=== PATIENT | male | born 1975 | race African-American/Black ===

== ENCOUNTER 2017-04-16 07:10 | Day surgery (SDC) | payer OTHER ==
[2017-04-11 12:00] VITALS: BMI 38.5
[2017-04-16] MEDS ORDERED: MIDAZOLAM HCL 2 MG/2 ML SINGLE DOSE VIAL ONE (07:55)
[2017-04-16] MEDS ORDERED: ACETAMINOPHEN 325 MG TABLET (FP) PO PRN (08:43)
[2017-04-16] MEDS ORDERED: ONDANSETRON 4 MG/2 ML VIAL IVPUSH PRN (08:43)
[2017-04-16] MEDS ORDERED: oxyCODONE HCL 5 MG TABLET PO PRN (08:43)
[2017-04-16] MEDS ORDERED: LACTATED RINGERS SOLUTION 1,000 ML IV SCH (08:45)
[2017-04-16 09:02] VITALS: TEMP 97.9
[2017-04-16 09:19] VITALS: BP 113/64; PULSE 84
--- NOTE | 2017-04-18 09:10 | OP ---
DATE OF OPERATION: 04/16/2017 PREOPERATIVE DIAGNOSIS: Left carpal tunnel syndrome. POSTOPERATIVE DIAGNOSIS: Left carpal tunnel syndrome. OPERATIVE PROCEDURE: Left carpal tunnel release. ANESTHESIA: Local with sedation. COMPLICATIONS: None. ESTIMATED BLOOD LOSS: Minimal. INDICATIONS FOR PROCEDURE: The patient is a 42-year-old with the above finding, indicated for operative treatment. Risks, benefits, and alternatives were discussed with the patient at length. Proper informed consent was obtained. PROCEDURE: After proper identification of the patient and correct operative site, the patient was brought to the operating room and placed supine on the operating room table. All prominences were well padded. Sedation was given by the anesthesiologist. Local anesthesia was given with 2% lidocaine. Left upper extremity was prepped and draped in the usual sterile fashion. A well-padded tourniquet was placed with a sterile prep. Esmarch bandage used to exsanguinate the left upper extremity. Tourniquet was inflated to 250 mmHg. A longitudinal incision was made over the proximal aspect of the palm. Incision was taken sharply through skin with blunt and sharp dissection through the subcutaneous tissues. Palmar fascia was divided longitudinally and the transverse carpal ligament was divided longitudinally along with the distal 4 cm of antebrachial fascia under direct visualization with loupe magnification. This provided complete release . The wound was irrigated with saline and repaired with a 5-0 nylon suture. Sterile dressings were applied. The patient was reversed from sedation and brought to the recovery room in stable condition. He tolerated the procedure well. Blessing [id number]
== END 2017-04-16 09:25 | disposition home or self-care (01) ==
LOC: FASU 07:10
PROVIDERS: ATTEND Orthopaedic Surgery Hand Surgery
PROC: 01N50ZZ Release Median Nerve, Open Approach (ICD-10-PCS; principal; 2017-04-16 08:25)
DX: G56.02 Carpal tunnel syndrome, left upper limb (principal)

== ENCOUNTER 2021-08-01 08:41 | Day surgery (SDC) | payer OTHER ==
[2021-07-26 12:18] VITALS: BMI 38.5
[2021-08-01] MEDS ORDERED: LIDOCAINE HCL 2% (20ML MULTI-DOSE VIAL) ONE (10:31)
[2021-08-01] MEDS ORDERED: MIDAZOLAM HCL 2 MG/2 ML SINGLE DOSE VIAL ONE ×2 (10:46)
[2021-08-01] MEDS ORDERED: PROPOFOL 20 ML ONE ×2 (10:53→11:02)
[2021-08-01 11:46] VITALS: PULSE 64; TEMP 97.7
[2021-08-01 12:16] VITALS: BP 118/78
== END 2021-08-01 12:15 | disposition home or self-care (01) ==
LOC: FASU 08:41
PROVIDERS: ATTEND Orthopaedic Surgery Hand Surgery
PROC: 01N50ZZ Release Median Nerve, Open Approach (ICD-10-PCS; principal; 2021-08-01 11:01)
DX: G56.01 Carpal tunnel syndrome, right upper limb (principal)

== ENCOUNTER 2023-05-13 20:18 | Emergency (ER) | payer OTHER ==
[2023-05-13 20:31] VITALS: BP 124/69; PULSE 74; RESP 16; TEMP 98.5; BMI 35.9
[2023-05-13] MEDS ORDERED: DIPHTH,PERTUSS(ACELL),TET 0.5 ML DISP.SYRIN IM ONE ×2 (22:53→22:57)
[2023-05-13] MEDS ORDERED: AMOX TR/POT CLAV 875MG/125MG TABLETS (FP) PO ONE (22:53)
[2023-05-13] MEDS ORDERED: AMOX TR/POT CLAV 875MG/125MG TABLETS (FP) ONE (22:57)
== END 2023-05-13 23:24 | disposition home or self-care (01) ==
LOC: FER 20:18
PROC: 3E0234Z Introduction of Serum, Toxoid and Vaccine into Muscle, Percutaneous Approach (ICD-10-PCS; principal; 2023-05-13)
DX: S90.851A Superficial foreign body, right foot, initial encounter (principal); W46.0XXA Contact with hypodermic needle, initial encounter; Y93.01 Activity, walking, marching and hiking; Y92.9 Unspecified place or not applicable
CPT/HCPCS: 73630-TC-RT-FY; 90715; 99283-25

== ENCOUNTER 2023-05-22 11:40 | Day surgery (SDC) | payer OTHER ==
[2023-05-20 11:55] VITALS: BMI 36.6
[2023-05-22 12:20] VITALS: RESP 20
[2023-05-22] MEDS ORDERED: PROPOFOL 20 ML ONE ×3 (12:22→13:39)
[2023-05-22] MEDS ORDERED: MIDAZOLAM HCL 2 MG/2 ML SINGLE DOSE VIAL ONE (12:22)
[2023-05-22] MEDS ORDERED: BUPIVACAINE HCL/PF 0.5% (5MG/ML) 10 ML VIAL ONE (12:26)
[2023-05-22] MEDS ORDERED: BUPIVACAINE HCL/PF 0.25% (2.5MG/ML) 10 ML VIAL ONE (12:26)
[2023-05-22] MEDS ORDERED: LIDOCAINE 1% P/F 10 MG/ML VIAL ONE (12:26)
[2023-05-22] MEDS ORDERED: ONDANSETRON 4 MG/2 ML VIAL IVPUSH PRN (12:27)
[2023-05-22] MEDS ORDERED: LIDOCAINE HCL 1%, 10 MG/ML (20ML VIAL) ONE (12:27)
[2023-05-22] MEDS ORDERED: oxyCODONE HCL 5 MG TABLET PO PRN ×2 (12:27)
[2023-05-22] MEDS ORDERED: LACTATED RINGERS SOLUTION 1,000 ML IV SCH (12:30)
[2023-05-22] MEDS ORDERED: LIDOCAINE HCL 2% (20ML MULTI-DOSE VIAL) ONE (12:36)
[2023-05-22] MEDS ORDERED: oxyCODONE HCL 5 MG TABLET ONE (14:21)
[2023-05-22 14:51] VITALS: TEMP 97.4
[2023-05-22 15:04] VITALS: BP 128/73; PULSE 68
== END 2023-05-22 15:00 | disposition home or self-care (01) ==
LOC: FASU 11:40
PROVIDERS: ATTEND Podiatrist Foot & Ankle Surgery
PROC: 0KCV0ZZ Extirpation of Matter from Right Foot Muscle, Open Approach (ICD-10-PCS; principal; 2023-05-22 13:32)
DX: M79.5 Residual foreign body in soft tissue (principal)
CPT/HCPCS: 73630-TC-RT-FY; 87070; 87186; 87205; 88300-TC